=== PATIENT | male | born 2000 | race Two or more races ===

== ENCOUNTER 2019-09-06 09:01 | Emergency (ER) | payer MEDICAID ==
[~2019-09-06] VITALS: Ht 165.1 cm; Wt 54.4 kg
[2019-09-06 09:23] VITALS: BP 102/41
[2019-09-06] MEDS ORDERED: SODIUM CHLORIDE 0.9% 1,000 ML IV ONE ×2 (09:27)
[2019-09-06] MEDS ORDERED: THIAMINE 100mg/ml INJ (200mg/2ml VIAL) IV ONE (09:30)
[2019-09-06 09:46] LABS: Basophils # (auto) 0 uL; Eosinophils # (auto) 0 uL; Monocytes # (auto) 0.5 uL
[2019-09-06 09:48] LABS: Basophils % (auto) 0.3 % (0.0-2.0); Hematocrit 54.3 % (41.0-53.0); Hemoglobin 18.5 g/dL (13.5-17.5); Lymphocytes # (auto) 0.8 uL; Lymphocytes % (auto) 6.5 % (10.0-50.0); Mean Corpuscular Hemoglobin 33.3 pg (28.0-32.0); Mean Corpuscular Volume 97.9 fL (80.0-100.0); Monocytes % (auto) 4.4 % (0.0-12.0); Neutrophils # (auto) 10.6 uL; Neutrophils % (auto) 88.8 % (37.0-80.0); Platelet Count (auto) 210 10^3/uL (140-450); Red Blood Cells 5.55 10^6/uL (4.5-5.90); Red Cell Distribution Width 13.9 % (11.8-14.3); White Blood Cell 11.9 10^3/uL (4.4-10.8)
[2019-09-06] MEDS ORDERED: IOHEXOL 300 MG/ML 100ML BOTTLE IJ ONE (09:51)
[2019-09-06 10:04] LABS: Albumin 4.9 g/dL (3.4-5.0); BUN/Creatinine Ratio 13.3; Calcium 8.7 mg/dL (8.5-10.1); Potassium 3.6 mmol/L (3.5-5.1)
[2019-09-06 10:07] LABS: Bilirubin, Total 0.9 mg/dL (0.2-1.0); Total Protein 9.3 g/dL (6.4-8.2)
== END 2019-09-06 10:51 ==
LOC: EDBD 09:01 → EDUNIT# 09:01 → ER 09:01
DX: S70.01XA Contusion of right hip, initial encounter (principal); F10.129 Alcohol abuse with intoxication, unspecified; E86.0 Dehydration; R41.82 Altered mental status, unspecified; V47.5XXA Car driver injured in collision with fixed or stationary object in traffic accident, initial encounter; Y93.89 Activity, other specified; Y92.488 Other paved roadways as the place of occurrence of the external cause; Y99.8 Other external cause status; Y90.9 Presence of alcohol in blood, level not specified
CPT/HCPCS: 36415; 70450; 71260; 72125; 74177; 80053; 80320; 85025; 93005; 96361; 96374; 99284; J3411; J7030; Q9967

== ENCOUNTER 2021-10-20 13:04 | Emergency (ER) | payer MEDICAID ==
[~2021-10-20] VITALS: Ht 165.1 cm; Wt 54.4 kg
[2021-10-20 13:48] VITALS: BP 103/58
[2021-10-20] MEDS: diphenhdrAMINE HCL 50 MG/1 ML VL IM ONE (15:02)
[2021-10-20] MEDS: ONDANSETRON ODT 4 MG TAB PO ONE (15:02)
[2021-10-20] MEDS ORDERED: ONDA-144 PO (15:34)
[2021-10-20] MEDS ORDERED: HYDR50CA PO (15:34)
== END 2021-10-20 15:47 | disposition home or self-care (01) ==
LOC: ER 13:04
DX: F41.1 Generalized anxiety disorder (principal); F14.10 Cocaine abuse, uncomplicated
CPT/HCPCS: 96372; 99283; J1200; Q0162